=== PATIENT | male | born 1935 | race Hispanic/Latino ===

== ENCOUNTER → 2024-11-25 | Outpatient (CLI) | payer OTHER ==
[~2024-11-25] MED LIST: AEC81 PO; AMLO2.5T4 PO; ATOR40TA71 PO; CETI10TA57 PO; INSU100V12 SQ; METF-446 PO; METO-391 PO; OMEP20CA12 PO; SEMA1PEN3 SQ; TAMS-1 PO; VITAMIN D PO
--- NOTE | 2024-11-25 14:07 | HMCIMG ---
CT CHEST WITHOUT CONTRAST INDICATION: Chronic cough TECHNIQUE: Routine axial images using 5 mm slice thickness were acquired from the lung apices to the bases without the administration of IV contrast.Coronal and sagittal reformatted images acquired for interpretation. CT was performed with one or more of the following dose reduction techniques: Automated exposure control, adjustment of the mA and/or kV according to patient size, or use of iterative reconstruction technique. COMPARISON: None FINDINGS: The heart size is normal. Coronary arterial wall calcific plaque noted. No pericardial effusion noted. Mild calcific plaque is present along the aortic arch and thoracic aortic mckeon without aneurysmal dilation. The trachea and airways are patent. Mild right greater than left upper lobe bronchiectasis at the lung apices. No evidence for consolidation or cavitary lesion. Pleural-parenchymal scarring at both lung apices, including scattered nodularity. No axillary, hilar, or mediastinal lymphadenopathy. No pleural effusion or pneumothorax identified. Several subcentimeter calcific gallstones. Visible osseous structures are intact. IMPRESSION: 1. 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 2. Cholelithiasis. 3. Arteriosclerotic disease as described.
== END | disposition home or self-care (01) ==
LOC: RAH 13:01
PROVIDERS: ATTEND Internal Medicine
DX: I25.10 Atherosclerotic heart disease of native coronary artery without angina pectoris (principal); J47.9 Bronchiectasis, uncomplicated; R91.8 Other nonspecific abnormal finding of lung field; K80.20 Calculus of gallbladder without cholecystitis without obstruction; K82.8 Other specified diseases of gallbladder; R05.3 Chronic cough; I70.0 Atherosclerosis of aorta
CPT/HCPCS: 71250